=== PATIENT | male | born 1965 ===

== ENCOUNTER 2016-12-24 20:56 | Emergency (ER) | payer OTHER ==
[2016-12-24 21:22] VITALS: RESP 20; TEMP 97.7
[2016-12-24] MEDS ORDERED: Lidocaine 5% Patch TD STA (21:38)
[2016-12-24] MEDS ORDERED: Lidocaine 5% Patch TD ONE (21:56)
--- NOTE | 2016-12-24 21:57 | C.PDOC ---
History Of Present Illness A 51 y/o male with a Hx of a herniated disk and chronic back pain, comes in the ER c/o lower back pain after heavy lifting today. Patient took Tylenol with no relief. Patient denies numbness, weakness, fever, chills, trauma, or any other complaints. Time Seen by Provider: 12/24/16 21:32 Chief Complaint (Nursing): Back Pain History Per: Patient History/Exam Limitations: no limitations Onset/Duration Of Symptoms: Hrs Current Symptoms Are (Timing): Still Present Severity: Mild Exacerbating Factor(s): Movement Recent travel outside of the [place]: No Additional History Per: Patient Past Medical History Reviewed: Historical Data, Nursing Documentation, Vital Signs Vital Signs: Last Vital Signs Temp 97.7 F 12/24/16 21:18 Pulse 67 12/24/16 21:18 Resp 20 12/24/16 21:18 BP 157/92 H 12/24/16 21:18 Pulse Ox 100 12/24/16 22:35 - Medical History PMH: Back Problems Family History: States: Unknown Family Hx - Social History Hx Alcohol Use: No Hx Substance Use: No - Immunization History Hx Tetanus Toxoid Vaccination: No Hx Influenza Vaccination: No Hx Pneumococcal Vaccination: No Review Of Systems Except As Marked, All Systems Reviewed And Found Negative. Constitutional: Negative for: Fever, Chills, Other (Trauma) Musculoskeletal: Positive for: Back Pain (Lower back pain) Neurological: Negative for: Weakness, Numbness Physical Exam - Physical Exam Appears: Non-toxic, No Acute Distress Skin: Warm, Dry Head: Atraumatic, Normacephalic Eye(s): bilateral: Normal Inspection, EOMI Neck: Normal ROM Chest: Symmetrical Cardiovascular: Rhythm Regular, No Murmur Respiratory: Normal Breath Sounds, No Rales, No Rhonchi, No Wheezing Gastrointestinal/Abdominal: Soft, No Tenderness Back: No CVA Tenderness, No Vertebral Tenderness, Paraspinal Tenderness ( Paralumbar tenderness) Extremity: Normal ROM, No Pedal Edema, No Calf Tenderness, Capillary Refill (< 2secs), No Deformity, No Swelling Neurological/Psych: Oriented x3, Normal Speech, Normal Cognition, Other (No focal deficit) ED Course And Treatment O2 Sat by Pulse Oximetry: 100 (RA) Pulse Ox Interpretation: Normal Medical Decision Making Medical Decision Making: Impression: 51 y/o c/o lower back pain since today Plans: -Valium -Toradol -Lidocaine On reassessment, patient is resting comfortably, with improvement of back pain. Patient remains afebrile, with no bony tenderness, extremity numbness or weakness, or abdominal pain. Patient is ambulatory in the emergency department with no signs of discomfort. Patient was advised to follow up with physician/ clinic in 1-2 days. Disposition Counseled Patient/Family Regarding: Diagnosis, Need For Followup, Rx Given - Disposition Referrals: [facility] [Outside] [facility] [Outside] Disposition: HOME/ ROUTINE Disposition Time: 22:34 Condition: STABLE Additional Instructions: Vaya a alvarez mdico o la clnica en 2-5 carr sin falta, para mas evaluacin. Ponderosa los medicamentos tram indicado. Volver a la lurdes de emergencia en cualquier momento si los sntomas persisten o empeoran Prescriptions: Cyclobenzaprine [Cyclobenzaprine HCl] 10 mg PO TID #30 tab Ibuprofen [Motrin] 600 mg PO Q8 #30 tab Instructions: Acute Low Back Pain (DC) Print Language: HUNGARIAN - POA Present On Arrival: None - Clinical Impression Clinical Impression: Low back pain - Scribe Statement The provider has reviewed the documentation as recorded by the Scribe Joshua [email or web address] All medical record entries made by the Scribe were at my direction and personally dictated by me. I have reviewed the chart and agree that the record accurately reflects my personal performance of the history, physical exam, medical decision making, and the department course for this patient. I have also personally directed, reviewed, and agree with the discharge instructions and disposition.
[2016-12-24 23:18] VITALS: BP 132/76; PULSE 74; O2SAT 99
== END 2016-12-24 23:16 | disposition home or self-care (01) ==
LOC: C.ER 20:56
DX: M54.5 Low back pain (principal)
CPT/HCPCS: 96372; 99283; J1885

== ENCOUNTER 2018-09-25 20:39 | Emergency (ER) | payer SELFPAY ==
[2018-09-25 20:53] VITALS: BP 145/87; PULSE 81; RESP 20; TEMP 97.6; O2SAT 98
[2018-09-25] MEDS ORDERED: Lidocaine 5% Patch TD STA (22:13)
--- NOTE | 2018-09-25 22:19 | C.PDOC ---
History Of Present Illness 53 y/o male with hx lumbar disk problems c/o lower back pain , both sides but right more than left x 3-4 days after lifting something heavy at work, denies bladder and bowel dysfunction. no saddle anesthesia. pt sts pain wraps around right side of his waist and down his right leg. pt taking a 'pill for pain' at home, name and dosage unknown. Time Seen by Provider: 09/25/18 20:57 Chief Complaint (Nursing): Back Pain History Per: Patient History/Exam Limitations: language barrier ([id number]) Onset/Duration Of Symptoms: Days (4) Current Symptoms Are (Timing): Still Present Quality Of Discomfort: "Pain" Severity: Moderate Previous Symptoms: Back Pain Associated Symptoms: denies: Incontinence, New Weakness, New Numbness Exacerbating Factor(s): Movement, Sitting Past Medical History Reviewed: Historical Data, Nursing Documentation, Vital Signs Vital Signs: Last Vital Signs Temp 97.6 F 09/25/18 20:51 Pulse 81 09/25/18 20:51 Resp 20 09/25/18 20:51 BP 145/87 09/25/18 20:51 Pulse Ox 98 09/25/18 20:51 - Medical History PMH: Back Problems Surgical History: No Surg Hx Family History: States: Unknown Family Hx - Social History Hx Alcohol Use: No Hx Substance Use: No - Immunization History Hx Tetanus Toxoid Vaccination: No Hx Influenza Vaccination: No Hx Pneumococcal Vaccination: No Review Of Systems Constitutional: Negative for: Fever, Chills Gastrointestinal: Negative for: Nausea, Vomiting, Abdominal Pain Musculoskeletal: Positive for: Back Pain Skin: Negative for: Rash Neurological: Negative for: Weakness, Numbness Physical Exam - Physical Exam Appears: Non-toxic, Other (uncomftable) Skin: Warm, Dry Head: Atraumatic, Normacephalic Eye(s): bilateral: Normal Inspection Neck: No Midline Cervical Tenderness, No Paracervical Tenderness Chest: Symmetrical, No Deformity, No Tenderness Gastrointestinal/Abdominal: Bowel Sounds, Soft, No Tenderness, No Distention, No Guarding, No Rebound Back: Normal Inspection, No CVA Tenderness, No Vertebral Tenderness, Paraspinal Tenderness (left and right lumbar, right more than left) ED Course And Treatment O2 Sat by Pulse Oximetry: 98 Medical Decision Making Medical Decision Making: pt with hx disk prob with low back pain, similar today after heavy lifting. feels better, d/c home Disposition Counseled Patient/Family Regarding: Diagnosis, Need For Followup, Rx Given - Disposition Referrals: [facility] [Outside] Disposition: HOME/ ROUTINE Disposition Time: 22:52 Condition: GOOD Additional Instructions: Hammett ibuprofeno para el dolor 600 mg por va oral cada 6 horas. Qutese el parche en 12 horas. Hammett relajante muscular al acostarse, compresas fras o calientes en el zulema dolorosa. No levantar objetos pesados. Seguimiento en clnica. Take ibuprofen for pain 600 mg by mouth every 6 hours. Take patch off in 12 hours. Take muscle relaxant at bedtime, Warm or cold compresses to painful area. No heavy lifting Follow up in clinic. Prescriptions: Cyclobenzaprine [Cyclobenzaprine HCl] 10 mg PO Q8 #9 tab Ibuprofen [Motrin] 600 mg PO TID #30 tab Instructions: Lumbar Muscle Strain (DC) Forms: Gen Discharge Inst [place], [facility] ([place]), Work Excuse - Clinical Impression Clinical Impression: Low back strain
[2018-09-25] MEDS ORDERED: Lidocaine 5% Patch TD ONE (22:22)
== END 2018-09-25 23:07 | disposition home or self-care (01) ==
LOC: C.ER 20:39
DX: S39.012A Strain of muscle, fascia and tendon of lower back, initial encounter (principal); X50.0XXA Overexertion from strenuous movement or load, initial encounter; Y99.0 Civilian activity done for income or pay
CPT/HCPCS: 96372; 99284; J1885